=== PATIENT | male | born 1985 | race Caucasian/White ===

== ENCOUNTER 2017-04-04 00:42 | Emergency (ER) | payer OTHER ==
[~2017-04-04] VITALS: Ht 182.9 cm; Wt 132.0 kg
[2017-04-04 00:43] VITALS: BP 140/90
[2017-04-04] MEDS ORDERED: METHOCARBAMOL 750 MG TABLET ONE (01:26)
[2017-04-04] MEDS ORDERED: KETOROLAC 30 MG/1 ML ONE (01:26)
[2017-04-04] MEDS ORDERED: KETOROLAC 30 MG/1 ML IM ONE (01:30)
[2017-04-04] MEDS ORDERED: METHOCARBAMOL 750 MG TABLET PO ONE (01:30)
== END 2017-04-04 02:17 | disposition home or self-care (01) ==
LOC: ED 02:10
DX: S23.3XXA Sprain of ligaments of thoracic spine, initial encounter (principal); W19.XXXA Unspecified fall, initial encounter; Y93.89 Activity, other specified; Y99.0 Civilian activity done for income or pay; Y92.69 Other specified industrial and construction area as the place of occurrence of the external cause
CPT/HCPCS: 72072; 96372; 99284; J1885